=== PATIENT | female | born 1995 | race American Indian/Alaskan Native ===

== ENCOUNTER 2017-07-29 09:00 | Emergency (ER) | payer SELFPAY ==
[2017-07-29] MEDS ORDERED: TORADOL IM ONE (09:17)
[2017-07-29 09:37] LABS: Basophils # (Auto) 0.1 K/mm3 (0.0-0.1); Basophils % (Auto) 0.8 % (0.0-1.8); Eosinophils # (Auto) 0.2 K/mm3 (0.0-0.4); Eosinophils % (Auto) 2.5 % (0.0-4.3); Hematocrit 40.4 % (30.3-42.9); Hemoglobin 13.6 gm/dl (10.1-14.3); Lymphocytes # (Auto) 2.4 K/mm3 (1.2-5.4); Lymphocytes % (Auto) 34.7 % (13.4-35.0); Mean Corpuscular HGB Conc 34 % (30-34); Mean Corpuscular Hemoglobin 29 pg (28-32); Mean Corpuscular Volume 88 fl (79-97); Monocytes # (Auto) 0.5 K/mm3 (0.0-0.8); Monocytes % (Auto) 7.4 % (0.0-7.3); Platelet Count 299 K/mm3 (140-440); Red Blood Count 4.61 M/mm3 (3.65-5.03); Red Cell Distribution Width 13.9 % (13.2-15.2)
[2017-07-29 09:51] LABS: HCG Qualitative,Urine Negative (Negative)
[2017-07-29 09:53] LABS: Bilirubin,Urine NEG (Negative); Blood,Urine SM (Negative); Color,Urine Yellow (Yellow); Mucus,Urine 3+ /HPF; Protein,Urine <15 mg/dL mg/dL (Negative); Urobilinogen,Urine < 2.0 mg/dL (<2.0)
--- NOTE | 2017-07-29 10:46 | Cat Scan Report ---
CT ABDOMEN PELVIS WITHOUT CONTRAST: HISTORY: Severe left flank pain, history of kidney stones. COMPARISON: none. TECHNIQUE: Helical CT in 1.25mm intervals without IV contrast. Sagittal and coronal reconstructions. Comment: Slightly limited imaging secondary to patient motion. FINDINGS: Lung bases: Normal. Liver: Normal. Biliary system: Cholecystectomy changes are suspected. No biliary dilatation. Pancreas: Normal. Spleen: Normal. Kidneys/ureters/bladder: There are 3 calyceal stones in the right kidney. A 5 mm stone is identified at the superior pole. 2 punctate stones are noted near mid pole. No left nephrolithiasis or ureteral stones are identified. No renal cystic disease, obvious mass or hydronephrosis. The bladder is partially empty but unremarkable. Adrenal glands: Normal. Aorta: Normal. Intestines: Unremarkable given no oral contrast was administered. Appendix: Not confidently identified, correlate with surgical history. Pelvic viscera: Normal. Ascites: None. Adenopathy: None. Musculoskeletal: Normal. IMPRESSION: Nonobstructing right nephrolithiasis as described. No left nephrolithiasis or hydronephrosis.
[2017-07-29 11:12] LABS: Alanine Aminotransferase 11 units/L (7-56); Albumin 4.2 g/dL (3.9-5); BUN/Creatinine Ratio 8; Blood Urea Nitrogen 6 mg/dL (7-17); Calcium 9.3 mg/dL (8.4-10.2); Hemolysis Index 12
[2017-07-29] MEDS ORDERED: NACL 0.9% 1000 ML 1,000 ML IV ONE (12:31)
[2017-07-29] MEDS ORDERED: MORPHINE IV ONE (12:44)
[2017-07-29] MEDS ORDERED: ZOFRAN IV ONE (12:44)
[2017-07-29] MEDS ORDERED: MORPHINE ONE (13:02)
--- NOTE | 2017-07-29 13:21 | Emergency Department Report ---
ED Abdominal Pain HPI - General Chief Complaint: Abdominal Pain Stated Complaint: LEFT SIDED FLANK PAIN Time Seen by Provider: 07/29/17 12:08 Source: patient Mode of arrival: Ambulatory Limitations: No Limitations - History of Present Illness Initial Comments: This is a 21-year-old female nontoxic, well nourished in appearance, no acute signs of distress presents to the ED with c/o of acute on chronic flank pain. Patient states last week she developed right-sided flank pain and describes as aching and worsening. Patient also stated she has been diagnosed with chronic kidney stones. Patient denies any bladder or bowel stability. Patient denies any dysuria, hematuria, polyuria, abdominal pain, fever, chills, nausea, vomiting, chest pain, shortness of breathe, numbness, tingling. Patient states allergies or amoxicilli and ciprofloxacin. Patient states PMH includes kidney stones. MD Complaint: flank pain -: week(s) (1) Location: L flank Radiation: none Migration to: no migration Severity: mild Severity scale (0 -10): 8 Quality: aching Consistency: constant Improves With: nothing Worsens With: nothing Associated Symptoms: denies other symptoms. denies: nausea, diarrhea, fever, chills, constipation, dysuria, hematemesis, hematochezia, melena, hematuria, anorexia, syncope - Related Data Previous Rx's Medication Instructions Recorded Last Taken Type Ondansetron [Zofran Odt] 4 mg PO Q8HR PRN #20 tab.rapdis 07/29/17 Unknown Rx traMADol [Ultram] 50 mg PO Q6HR PRN #12 tablet 07/29/17 Unknown Rx Allergies Allergy/AdvReac Type Severity Reaction Status Date / Time amoxicillin Allergy Unknown Verified 07/29/17 13:03 ciprofloxacin [From Cipro] Allergy Nausea Verified 07/29/17 13:03 ED Review of Systems ROS: Stated complaint: LEFT SIDED FLANK PAIN Other details as noted in HPI Constitutional: denies: chills, fever Eyes: denies: eye pain, eye discharge, vision change ENT: denies: ear pain, throat pain Respiratory: denies: cough, shortness of breath, wheezing Cardiovascular: denies: chest pain, palpitations Endocrine: no symptoms reported Gastrointestinal: denies: abdominal pain, nausea, diarrhea Genitourinary: denies: urgency, dysuria, discharge Musculoskeletal: denies: back pain, joint swelling, arthralgia Skin: denies: rash, lesions Neurological: denies: headache, weakness, paresthesias Psychiatric: denies: anxiety, depression Hematological/Lymphatic: denies: easy bleeding, easy bruising ED Past Medical Hx - Past Medical History Previous Medical History?: Yes Hx Kidney Stones: Yes - Surgical History Past Surgical History?: Yes Hx Cholecystectomy: Yes () Hx Breast Surgery: Yes (reduction) Additional Surgical History: Back surgery -2016. Lithotripsy x 7 - Social History Smoking Status: Never Smoker Substance Use Type: Alcohol - Medications Home Medications: Home Medications Medication Instructions Recorded Confirmed Last Taken Type Ondansetron [Zofran Odt] 4 mg PO Q8HR PRN #20 tab.rapdis 07/29/17 Unknown Rx traMADol [Ultram] 50 mg PO Q6HR PRN #12 tablet 07/29/17 Unknown Rx ED Physical Exam - General Limitations: No Limitations General appearance: alert, in no apparent distress - Head Head exam: Present: atraumatic, normocephalic - Eye Eye exam: Present: normal appearance, PERRL, EOMI Pupils: Present: normal accommodation - ENT ENT exam: Present: mucous membranes moist - Neck Neck exam: Present: normal inspection - Respiratory Respiratory exam: Present: normal lung sounds bilaterally. Absent: respiratory distress, wheezes, rhonchi, stridor, chest wall tenderness, accessory muscle use , decreased breath sounds, prolonged expiratory - Cardiovascular Cardiovascular Exam: Present: regular rate, normal rhythm, normal heart sounds. Absent: bradycardia, tachycardia, irregular rhythm, systolic murmur, diastolic murmur, rubs, gallop - GI/Abdominal GI/Abdominal exam: Present: soft, normal bowel sounds. Absent: distended, tenderness, guarding, rebound, rigid, diminished bowel sounds - Extremities Exam Extremities exam: Present: normal inspection, full ROM, normal capillary refill. Absent: tenderness, pedal edema, joint swelling, calf tenderness - Back Exam Back exam: Present: normal inspection, full ROM, other (right flank pain). Absent: tenderness, CVA tenderness (R), CVA tenderness (L), muscle spasm, paraspinal tenderness, vertebral tenderness, rash noted - Neurological Exam Neurological exam: Present: alert, oriented X3, CN II-XII intact, normal gait, reflexes normal - Psychiatric Psychiatric exam: Present: normal affect, normal mood - Skin Skin exam: Present: warm, dry, intact, normal color. Absent: rash ED Course Vital Signs 07/29/17 07/29/17 07/29/17 09:06 13:07 13:21 Temperature 98 F Pulse Rate 70 62 Respiratory 20 18 Rate Blood Pressure 121/70 118/64 O2 Sat by Pulse 100 100 Oximetry 07/29/17 13:29 Temperature Pulse Rate Respiratory 18 Rate Blood Pressure O2 Sat by Pulse 99 Oximetry - Reevaluation(s) Reevaluation #1: 07/29/17 13:23 Patient is speaking in full sentences with no signs of distress noted. ED Medical Decision Making - Lab Data Result diagrams: 07/29/17 09:18 07/29/17 09:18 - Medical Decision Making This is a 21-year-old female who presents with nonobstructing right nephrolithiasis. Patient is animated. Labs within normal limits. UA within normal limits. CT without contrast obtained and dictated the radiologist with a nonobstructing Right kidney stone. No hydronephrosis. Patient is notified of the results with no questionable depression. Patient received 1 L of normal saline, Toradol and morphine with Zofran IV. Patient's pressure increased is currently beside this patient he will check the patient home at discharge due to drowsiness of morphine. Patient was instructed to increase hydration. Patient was also referred and instructed to Follow-up with a primary care doctor in 3-5 days or if symptoms worsen and continue return to emergency room as soon as possible. At time of discharge, the patient does not seem toxic or ill in appearance. No acute signs of distress noted. Patient agrees to discharge treatment plan of care. No further questions noted by the patient. Critical care attestation.: If time is entered above; I have spent that time in minutes in the direct care of this critically ill patient, excluding procedure time. ED Disposition Clinical Impression: Right nephrolithiasis Disposition: DC-01 TO HOME OR SELFCARE Is pt being admited?: No Does the pt Need Aspirin: No Condition: Stable Instructions: Tramadol (By mouth), Kidney Stones (ED) Additional Instructions: Follow-up with a primary care doctor in 3-5 days or if symptoms worsen and continue return to emergency room as soon as possible. Increase hydration as much as possible. Prescriptions: Ondansetron [Zofran Odt] 4 mg PO Q8HR PRN #20 tab.rapdis PRN Reason: Nausea traMADol [Ultram] 50 mg PO Q6HR PRN #12 tablet PRN Reason: Pain Referrals: PRIMARY CARE, [Primary Care Provider] - 3-5 Days TIMI BERTRAND MD [Staff Physician] - 3-5 Days [facility] [Outside] - 3-5 Days [facility] [Outside] - 3-5 Days Forms: Work/School Release Form(ED)
[2017-07-29 13:26] VITALS: BP 118/64
== END 2017-07-29 15:09 | disposition home or self-care (01) ==
LOC: ED 09:00
DX: N20.0 Calculus of kidney (principal); Z90.49 Acquired absence of other specified parts of digestive tract; Z88.6 Allergy status to analgesic agent; Z88.1 Allergy status to other antibiotic agents; Z87.442 Personal history of urinary calculi
CPT/HCPCS: 36415; 74176; 80053; 81001; 81025; 85025; 96361; 96372; 96374; 96375; 99284; J1885; J2270; J2405; J7030

== ENCOUNTER 2018-02-23 09:47 | Emergency (ER) | payer SELFPAY ==
[2018-02-23 09:53] VITALS: BP 108/81
[2018-02-23] MEDS ORDERED: NACL 0.9% 1000 ML 1,000 ML IV ONE ×2 (10:26→13:15)
[2018-02-23] MEDS ORDERED: TORADOL IV ONE (10:26)
[2018-02-23] MEDS ORDERED: ZOFRAN IV ONE ×2 (10:26→13:15)
--- NOTE | 2018-02-23 10:29 | Emergency Department Report ---
ED Abdominal Pain HPI - General Chief Complaint: Abdominal Pain Stated Complaint: STOMACH PAIN Time Seen by Provider: 02/23/18 10:26 Source: patient Mode of arrival: Ambulatory Limitations: No Limitations - History of Present Illness MD Complaint: flank pain -: Sudden Location: R flank Radiation: none Migration to: no migration Severity: severe Quality: stabbing Consistency: constant Improves With: nothing Worsens With: nothing Associated Symptoms: nausea. denies: vomiting, diarrhea, fever, chills, constipation, dysuria, hematemesis, hematochezia, melena, hematuria, anorexia, syncope Treatments Prior to Arrival: NSAIDs (DX AT [facility] AND TOLD SHE'D PASS THEM; INC PAIN THIS AM SO TO ER), prescription analgesics - Related Data Previous Rx's Medication Instructions Recorded Last Taken Type Ondansetron [Zofran Odt] 4 mg PO Q8HR PRN #12 tab.rapdis 02/23/18 Unknown Rx Sulfamethoxazole/Trimethoprim 1 each PO BID #6 tablet 02/23/18 Unknown Rx [Bactrim Ds Tablet] traMADol [Ultram] 50 mg PO Q6HR PRN #12 tablet 02/23/18 Unknown Rx Allergies Allergy/AdvReac Type Severity Reaction Status Date / Time amoxicillin Allergy Unknown Verified 02/23/18 11:25 ciprofloxacin [From Cipro] Allergy Nausea Verified 02/23/18 11:25 ED Review of Systems ROS: Stated complaint: STOMACH PAIN Other details as noted in HPI Comment: All other systems reviewed and negative Constitutional: denies: chills, fever Eyes: denies: eye pain ENT: denies: ear pain, throat pain Respiratory: denies: cough, orthopnea Cardiovascular: denies: palpitations Endocrine: denies: flushing, intolerance to heat Gastrointestinal: abdominal pain, nausea. denies: vomiting, diarrhea, constipation, hematemesis, melena Genitourinary: denies: urgency, dysuria, frequency, hematuria, discharge Musculoskeletal: denies: back pain Skin: denies: lesions Neurological: denies: headache Psychiatric: denies: anxiety Hematological/Lymphatic: denies: easy bleeding ED Past Medical Hx - Past Medical History Hx Kidney Stones: Yes - Surgical History Hx Cholecystectomy: Yes () Hx Breast Surgery: Yes (reduction) Additional Surgical History: Back surgery -2016. Lithotripsy x 7 - Family History Family history: no significant - Social History Smoking Status: Never Smoker Substance Use Type: None - Medications Home Medications: Home Medications Medication Instructions Recorded Confirmed Last Taken Type Ondansetron [Zofran Odt] 4 mg PO Q8HR PRN #12 tab.rapdis 02/23/18 Unknown Rx Sulfamethoxazole/Trimethoprim 1 each PO BID #6 tablet 02/23/18 Unknown Rx [Bactrim Ds Tablet] traMADol [Ultram] 50 mg PO Q6HR PRN #12 tablet 02/23/18 Unknown Rx ED Physical Exam - General Limitations: No Limitations General appearance: alert - Head Head exam: Present: atraumatic - Eye Eye exam: Present: normal appearance - ENT ENT exam: Present: mucous membranes moist - Neck Neck exam: Present: normal inspection - Respiratory Respiratory exam: Present: normal lung sounds bilaterally - Cardiovascular Cardiovascular Exam: Present: regular rate - GI/Abdominal GI/Abdominal exam: Present: soft, normal bowel sounds - Rectal Rectal exam: Present: deferred - Extremities Exam Extremities exam: Present: normal inspection - Back Exam Back exam: Present: normal inspection, CVA tenderness (R) - Neurological Exam Neurological exam: Present: alert, oriented X3, normal gait, reflexes normal - Psychiatric Psychiatric exam: Present: normal affect, normal mood - Skin Skin exam: Present: warm, dry ED Course Vital Signs 02/23/18 02/23/18 02/23/18 09:51 10:36 11:15 Temperature 98.1 F Pulse Rate 91 H Respiratory 16 18 18 Rate Blood Pressure 108/81 O2 Sat by Pulse 100 Oximetry 02/23/18 13:49 Temperature Pulse Rate Respiratory 18 Rate Blood Pressure O2 Sat by Pulse Oximetry - Reevaluation(s) Reevaluation #1: 02/23/18 0930 PT TO ER TODAY W R FLANK PAIN SHE IS AMBULATORY AND IN NAD SHE STATES SHE WAS SEEN AT [facility] WEEKS AGO AND SHE HAD K STONES (HX IN PAST TOO) THEY SENT HER HOME W RX TELLING HER STONE SMALL AND SHE WOULD PASS TODAY PAIN INC SHE REPORTS NAUSEA AND DIAPHORESIS LABS AND CT P Reevaluation #2: 02/23/18 1200 PT HAS BEEN MEDICATED FOR PAIN, NAUSEA AND ANBX CT POS STONE IVF 2 L NS VOIDING AND AMBULATORY IN ER TAKING PO WATER 02/23/18 1300 WILL DC HOME WITH URO FOLLOW UP Reevaluation #3: 02/23/18 14:24 ON DC PT UPSET SHE IS NOT BEING ADMITTED I AGAIN EXPLAINED TO PT HER OUTPT MANAGEMENT OF STONES. SHE STATES IN [place] SHE WOULD BE ADMITTED. EDUCATED PT ON DC MEDS AND FOLLOW UP VSS. NAD NO N/V ED Medical Decision Making - Lab Data Result diagrams: 02/23/18 10:33 02/23/18 10:33 - Radiology Data Radiology results: report reviewed - Medical Decision Making STONES ON CT CR N HYDRO DISCUSSED WITH DR YUDI CALLOWAY WITH FOLLOW UP - Differential Diagnosis KNOWN K STONES RO INFECTED STONE AND/OR OBSTRUCTING STONE Critical care attestation.: If time is entered above; I have spent that time in minutes in the direct care of this critically ill patient, excluding procedure time. ED Disposition Clinical Impression: Kidney stone, UTI (urinary tract infection), Hydronephrosis Disposition: TO HOME OR SELFCARE Is pt being admited?: No Does the pt Need Aspirin: No Condition: Stable Instructions: Kidney Stones (ED) Additional Instructions: CALL TODAY AND MAKE APPOINTMENT FOR UROLOGY THE STONE IS LARGE ENOUGH THAT IT MAY NEED TREATED TO PASS HYDRATE WELL WITH WATER MEDS ORDERED TODAY DIET TOLERATED ACTIVITY TOLERATED Prescriptions: Ondansetron [Zofran Odt] 4 mg PO Q8HR PRN #12 tab.rapdis PRN Reason: Nausea Sulfamethoxazole/Trimethoprim [Bactrim Ds Tablet] 1 each PO BID #6 tablet traMADol [Ultram] 50 mg PO Q6HR PRN #12 tablet PRN Reason: Pain Referrals: YODIT ALVARADO MD [Staff Physician] - 3-5 Days Time of Disposition: 13:22
[2018-02-23 10:45] LABS: Hematocrit 38.6 % (30.3-42.9); Hemoglobin 12.9 gm/dl (10.1-14.3); Mean Corpuscular HGB Conc 33 % (30-34); Mean Corpuscular Hemoglobin 30 pg (28-32); Mean Corpuscular Volume 90 fl (79-97); Platelet Count 286 K/mm3 (140-440); Red Cell Distribution Width 14.4 % (13.2-15.2)
[2018-02-23 11:02] LABS: BUN/Creatinine Ratio 14; Blood Urea Nitrogen 11 mg/dL (7-17); Hemolysis Index 31
[2018-02-23 11:10] LABS: Bacteria,Urine 4+ /HPF (Negative); Bilirubin,Urine NEG (Negative); Blood,Urine SM (Negative); Color,Urine Amber (Yellow); Mucus,Urine 3+ /HPF
[2018-02-23 11:11] LABS: WBC,Urine > 182.0 /HPF (0.0-6.0)
[2018-02-23 11:12] LABS: HCG Qualitative,Urine Negative (Negative)
[2018-02-23] MEDS ORDERED: ROCEPHIN/NS 1 GM/50 ML 1 GM/50 ML BAG IV ONE (11:13)
--- NOTE | 2018-02-23 12:45 | Cat Scan Report ---
CT ABDOMEN PELVIS WITHOUT CONTRAST: HISTORY: Right flank pain. COMPARISON: 07/29/17. TECHNIQUE: Helical CT in 1.25mm intervals without IV contrast. Sagittal and coronal reconstructions. FINDINGS: Lung bases: Normal. Liver: Normal. Biliary system: Cholecystectomy changes. No biliary dilatation. Pancreas: Normal. Spleen: Normal. Kidneys/ureters/bladder: There is moderate right hydronephrosis. A 7 x 5 x 11 mm calculus is identified in the proximal right ureter. A 3 mm calyceal stone is noted in the mid right kidney. No left nephrolithiasis. The bladder is partially empty but unremarkable. Adrenal glands: Normal. Aorta: Normal. Intestines: Normal. Appendix: Normal. Pelvic viscera: The 2 cm hypodensity is identified in the left adnexa which probably represents a left ovarian cyst. The uterus and right adnexa are unremarkable. Ascites: None. Adenopathy: None. Musculoskeletal: Normal. IMPRESSION: Proximal right ureteral stone as described. Moderate right hydronephrosis. 2 cm left ovarian cyst.
[2018-02-23] MEDS ORDERED: DILAUDID IV ONE (13:15)
[2018-02-23] MEDS ORDERED: ZOFRAN ODT ONE (14:49)
== END 2018-02-23 14:17 | disposition home or self-care (01) ==
LOC: ED 09:47
DX: N13.2 Hydronephrosis with renal and ureteral calculous obstruction (principal); N39.0 Urinary tract infection, site not specified; Z90.49 Acquired absence of other specified parts of digestive tract; Z88.1 Allergy status to other antibiotic agents
CPT/HCPCS: 36415; 74176; 80048; 81001; 81025; 85027; 96365; 96375; 96376; 99284; J0696; J1170; J1885; J2405; J7030; 96361; Q0162

== ENCOUNTER 2019-01-04 11:07 | Emergency (ER) | payer SELFPAY ==
--- NOTE | 2019-01-04 11:19 | Event Note ---
ED Screening Note Date of service: 01/04/19 Time: 11:18 ED Screening Note: 23 y/o female comes in for vaginal irritation and vaginal discharge for 5 days. This initial assessment/diagnostic orders/clinical plan/treatment(s) is/are subject to change based on patients health status, clinical progression and re- assessment by fellow clinical providers in the ED. Further treatment and workup at subsequent clinical providers discretion. Patient/guardian urged not to elope from the ED as their condition may be serious if not clinically assessed and managed. Initial orders include:
[2019-01-04 11:20] VITALS: BP 116/74
[2019-01-04 12:41] LABS: Bacteria,Urine 1+ /HPF (Negative); Bilirubin,Urine NEG (Negative); Blood,Urine NEG (Negative); Calcium Oxalate Crystals,Urine 2+; Color,Urine Yellow (Yellow); Mucus,Urine 3+ /HPF; Protein,Urine <15 mg/dL mg/dL (Negative); Urobilinogen,Urine < 2.0 mg/dL (<2.0)
--- NOTE | 2019-01-04 13:28 | Emergency Department Report ---
ED Female HPI - General Chief complaint: Urogenital-Female Stated complaint: VAGINAL RASH Time Seen by Provider: 01/04/19 11:17 Source: patient Mode of arrival: Ambulatory Limitations: No Limitations - History of Present Illness Initial comments: Fatou is a healthy 23-year-old female who presents with vaginal irritation vaginal discharge 5 days. White thick discharge. No fever. No abdominal pain. Gradual onset. She felt irritation in her buttock region. Concern for a rash. She did not see any lesions. She does shave her pubic region. MD Complaint: vaginal discharge -: Gradual, days(s) (5) Location: labia Severity: mild Quality: burning Consistency: constant Improves with: none Worsens with: none - Related Data Previous Rx's Medication Instructions Recorded Last Taken Type Ondansetron [Zofran Odt] 4 mg PO Q8HR PRN #12 tab.rapdis 02/23/18 Unknown Rx Sulfamethoxazole/Trimethoprim 1 each PO BID #6 tablet 02/23/18 Unknown Rx [Bactrim Ds Tablet] traMADol [Ultram] 50 mg PO Q6HR PRN #12 tablet 02/23/18 Unknown Rx Fluconazole [Diflucan TAB] 150 mg PO ONCE #1 tablet 01/04/19 Unknown Rx Miconazole/Cleanser 17 On Wipe 1 each VG QHS 7 Days #1 kit 01/04/19 Unknown Rx [Monistat 7 Combination Pack] metroNIDAZOLE [Flagyl TAB] 500 mg PO Q12HR 7 Days #14 tab 01/04/19 Unknown Rx Allergies Allergy/AdvReac Type Severity Reaction Status Date / Time amoxicillin Allergy Unknown Verified 02/23/18 11:25 ciprofloxacin [From Cipro] Allergy Nausea Verified 02/23/18 11:25 ED Review of Systems ROS: Stated complaint: VAGINAL RASH Other details as noted in HPI Constitutional: denies: fever, malaise Gastrointestinal: denies: abdominal pain, nausea, vomiting Genitourinary: discharge. denies: dysuria ED Past Medical Hx - Past Medical History Hx Kidney Stones: Yes - Surgical History Hx Cholecystectomy: Yes (-2016) Hx Breast Surgery: Yes (reduction) Additional Surgical History: Back surgery -2016. Lithotripsy x 7 - Social History Smoking Status: Never Smoker Substance Use Type: Alcohol - Medications Home Medications: Home Medications Medication Instructions Recorded Confirmed Last Taken Type Ondansetron [Zofran Odt] 4 mg PO Q8HR PRN #12 tab.rapdis 02/23/18 Unknown Rx Sulfamethoxazole/Trimethoprim 1 each PO BID #6 tablet 02/23/18 Unknown Rx [Bactrim Ds Tablet] traMADol [Ultram] 50 mg PO Q6HR PRN #12 tablet 02/23/18 Unknown Rx Fluconazole [Diflucan TAB] 150 mg PO ONCE #1 tablet 01/04/19 Unknown Rx Miconazole/Cleanser 17 On Wipe 1 each VG QHS 7 Days #1 kit 01/04/19 Unknown Rx [Monistat 7 Combination Pack] metroNIDAZOLE [Flagyl TAB] 500 mg PO Q12HR 7 Days #14 tab 01/04/19 Unknown Rx ED Physical Exam - General Limitations: No Limitations General appearance: alert, in no apparent distress - Head Head exam: Present: atraumatic, normocephalic - Eye Eye exam: Absent: scleral icterus, conjunctival injection - ENT ENT exam: Present: mucous membranes moist - Neck Neck exam: Present: normal inspection, full ROM - GI/Abdominal GI/Abdominal exam: Present: soft. Absent: distended, tenderness, guarding, rebound - External exam: Present: normal external exam. Absent: erythema, swelling, lesions, lacerations, ecchymosis, bleeding - Neurological Exam Neurological exam: Present: alert, oriented X3 - Psychiatric Psychiatric exam: Present: normal affect, normal mood - Skin Skin exam: Present: warm, dry, intact, normal color ED Course Vital Signs 01/04/19 11:18 Temperature 98.5 F Pulse Rate 72 Respiratory 18 Rate Blood Pressure 116/74 O2 Sat by Pulse 100 Oximetry ED Medical Decision Making - Medical Decision Making Vaginitis without indication of pelvic inflammatory disease, prescribed fluconazole Monistat and metronidazole Referred to shagger Critical care attestation.: If time is entered above; I have spent that time in minutes in the direct care of this critically ill patient, excluding procedure time. ED Disposition Clinical Impression: Vaginitis Disposition: - TO HOME OR SELFCARE Is pt being admited?: No Does the pt Need Aspirin: No Condition: Stable Instructions: Vaginitis (ED) Prescriptions: Miconazole/Cleanser 17 On Wipe [Monistat 7 Combination Pack] 1 each VG QHS 7 Days #1 kit Fluconazole [Diflucan TAB] 150 mg PO ONCE #1 tablet metroNIDAZOLE [Flagyl TAB] 500 mg PO Q12HR 7 Days #14 tab Referrals: ANKUSH WARD MD [Primary Care Provider] - 3-5 Days Forms: Work/School Release Form(ED)
== END 2019-01-04 13:34 | disposition home or self-care (01) ==
LOC: ED 11:07
DX: N76.0 Acute vaginitis (principal); Z87.442 Personal history of urinary calculi; Z90.49 Acquired absence of other specified parts of digestive tract; Z98.890 Other specified postprocedural states; Z79.899 Other long term (current) drug therapy; Z88.1 Allergy status to other antibiotic agents
CPT/HCPCS: 81001

== ENCOUNTER 2019-03-02 10:43 | Emergency (ER) | payer OTHER ==
[2019-03-02] MEDS ORDERED: NACL 0.9% 1000 ML 1,000 ML IV ONE (12:12)
[2019-03-02] MEDS ORDERED: ZOFRAN IV ONE (12:12)
[2019-03-02] MEDS ORDERED: TORADOL IV ONE (12:12)
--- NOTE | 2019-03-02 12:13 | Emergency Department Report ---
ED Abdominal Pain HPI - General Chief Complaint: Abdominal Pain Stated Complaint: RT SIDE PAIN/N/HARD TO URINE Time Seen by Provider: 03/02/19 12:12 Source: patient Mode of arrival: Ambulatory Limitations: No Limitations - History of Present Illness Initial Comments: CT 10-8 PROX STONE; PT DID NOT FOLLOW UP NO INSURANCE 23 YO COMES TO ER TODAY WITH R FLANK PAIN AND N/V. SHE STATES SHE HAS NO MD SO SHE CAME TO ER. NO VOMITING ON ADMIT TO ER. COMES VIA EMS WITH STABLE VS. PMH NUMEROUS K STONES PSH BREAST REDUCTION BACK SURGERY K STONES PT STATES NOT CONCERNED ABOUT STI. NOT CONCERNED FOR PREG LMP 9-20 SHE WAS ALSO SEEN ABOUT 1 WEEK AGO FOR VAG DC. PER RN SHE STATES ON INSERTION OF SHAH SHE HAD A LOT OF DISCHARGE. NO FEVER NON TOXIC NON ILL APPEARING ON EXAM IN ER NO FEVER SHE ENDORSES CHILLS AT HOME MD Complaint: abdominal pain -: Sudden, days(s) Location: R flank Radiation: none Migration to: RLQ Severity: severe Severity scale (0 -10): 10 Quality: stabbing, sharp Consistency: intermittent Improves With: nothing Worsens With: nothing Associated Symptoms: nausea, vomiting Treatments Prior to Arrival: NSAIDs - Related Data Previous Rx's Medication Instructions Recorded Last Taken Type Fluconazole [Diflucan TAB] 100 mg PO QDAY #1 tablet 03/02/19 Unknown Rx Ibuprofen [Motrin] 800 mg PO Q8HR PRN #30 tablet 03/02/19 Unknown Rx Ondansetron [Zofran Odt] 4 mg PO Q8HR PRN #10 tab.rapdis 03/02/19 Unknown Rx Sulfamethoxazole/Trimethoprim 1 each PO BID #10 tablet 03/02/19 Unknown Rx [Bactrim DS TAB] metroNIDAZOLE [Flagyl] 500 mg PO Q12HR #20 tab 03/02/19 Unknown Rx Allergies Allergy/AdvReac Type Severity Reaction Status Date / Time amoxicillin Allergy Unknown Verified 03/02/19 10:50 ciprofloxacin [From Cipro] Allergy Nausea Verified 03/02/19 10:50 ED Review of Systems ROS: Stated complaint: RT SIDE PAIN/N/HARD TO URINE Other details as noted in HPI Comment: All other systems reviewed and negative ED Past Medical Hx - Past Medical History Previous Medical History?: Yes Hx Kidney Stones: Yes - Surgical History Past Surgical History?: Yes Hx Cholecystectomy: Yes () Hx Breast Surgery: Yes (reduction) Additional Surgical History: Back surgery . Lithotripsy x 7, breast reduction - Family History Family history: no significant - Social History Smoking Status: Never Smoker Substance Use Type: Alcohol - Medications Home Medications: Home Medications Medication Instructions Recorded Confirmed Last Taken Type Fluconazole [Diflucan TAB] 100 mg PO QDAY #1 tablet 03/02/19 Unknown Rx Ibuprofen [Motrin] 800 mg PO Q8HR PRN #30 tablet 03/02/19 Unknown Rx Ondansetron [Zofran Odt] 4 mg PO Q8HR PRN #10 tab.rapdis 03/02/19 Unknown Rx Sulfamethoxazole/Trimethoprim 1 each PO BID #10 tablet 03/02/19 Unknown Rx [Bactrim DS TAB] metroNIDAZOLE [Flagyl] 500 mg PO Q12HR #20 tab 03/02/19 Unknown Rx ED Physical Exam - General Limitations: No Limitations General appearance: alert - Head Head exam: Present: normocephalic - Eye Eye exam: Present: normal appearance, PERRL - ENT ENT exam: Present: mucous membranes moist - Neck Neck exam: Present: normal inspection - Respiratory Respiratory exam: Present: normal lung sounds bilaterally - Cardiovascular Cardiovascular Exam: Present: regular rate, tachycardia (106) - GI/Abdominal GI/Abdominal exam: Present: soft, normal bowel sounds - Rectal Rectal exam: Present: deferred - Extremities Exam Extremities exam: Present: normal inspection, full ROM - Back Exam Back exam: Present: normal inspection, full ROM. Absent: tenderness, CVA tenderness (R), CVA tenderness (L) - Neurological Exam Neurological exam: Present: alert, oriented X3, CN II-XII intact, normal gait - Psychiatric Psychiatric exam: Present: normal affect, normal mood ED Course Vital Signs 03/02/19 03/02/19 03/02/19 10:50 13:20 16:07 Temperature 98.7 F Pulse Rate 106 H 75 Respiratory 18 16 18 Rate Blood Pressure 118/82 126/74 [Right] O2 Sat by Pulse 99 100 Oximetry - Reevaluation(s) Reevaluation #1: 03/02/19 16:00 HR 88 ON REEXAM ED Medical Decision Making - Lab Data Result diagrams: 03/02/19 13:08 03/02/19 13:08 - Radiology Data Radiology results: report reviewed, image reviewed - Medical Decision Making Labs 03/02/19 03/02/19 03/02/19 13:08 13:08 Unknown WBC 13.2 H RBC 4.40 Hgb 13.1 Hct 39.2 MCV 89 MCH 30 MCHC 33 RDW 13.1 L Plt Count 257 Sodium 136 L Potassium 4.2 Chloride 100.2 Carbon Dioxide 20 L Anion Gap 20 BUN 14 Creatinine 1.0 Estimated GFR > 60 BUN/Creatinine Ratio 14 Glucose 81 Calcium 9.5 Total Bilirubin 0.80 AST 24 ALT 15 Alkaline Phosphatase 73 Total Protein 8.4 H Albumin 4.4 Albumin/Globulin Ratio 1.1 Urine Color Yellow Urine Turbidity Cloudy Urine pH 5.0 Ur Specific [place] 1.019 Urine Protein 100 mg/dl Urine Glucose (UA) Neg Urine Ketones 20 Urine Blood Lg Urine Nitrite Pos Ur Reducing Substances Not Reportable Urine Bilirubin Neg Urine Ictotest Not Reportable Urine Urobilinogen < 2.0 Ur Leukocyte Esterase Mod Urine WBC (Auto) 173.0 H Urine RBC (Auto) 169.0 U Epithel Cells (Auto) 6.0 Urine Bacteria (Auto) 3+ Urine WBC Clumps 3+ Urine Mucus 3+ Urine HCG, Qual Negative Vital Signs 03/02/19 03/02/19 10:50 13:20 Temperature 98.7 F Pulse Rate 106 H Respiratory 18 16 Rate Blood Pressure 118/82 [Right] O2 Sat by Pulse 99 Oximetry UA NOTED NS/ROCEPHIN IV LABS NOTED WBC NORMAL NO FEVER CT NOTED INTERVAL CHANGE; LIKELY SHE PASSED STONE LAST WEEK SAW OBGYN AND HAS NO STI PER OBGYN RECENT TX FOR YEAST INFECTION DISCUSSED IMPORTANCE OF FOLLOW UP WITH URO FOR PT. SHE VERBALIZES UNDERSTANDING. VSS NO FEVER. AMBULATORY. TAKING PO ON DC. - Differential Diagnosis RO UTI/STI/K STONE/PYLO Critical care attestation.: If time is entered above; I have spent that time in minutes in the direct care of this critically ill patient, excluding procedure time. ED Disposition Clinical Impression: UTI (urinary tract infection), BV (bacterial vaginosis), Flank pain with history of urolithiasis Disposition: DC-01 TO HOME OR SELFCARE Is pt being admited?: No Does the pt Need Aspirin: No Condition: Stable Instructions: Bacterial Vaginosis (ED), Abdominal Pain (ED) Prescriptions: Sulfamethoxazole/Trimethoprim [Bactrim DS TAB] 1 each PO BID #10 tablet Fluconazole [Diflucan TAB] 100 mg PO QDAY #1 tablet metroNIDAZOLE [Flagyl] 500 mg PO Q12HR #20 tab Ibuprofen [Motrin] 800 mg PO Q8HR PRN #30 tablet PRN Reason: Pain, Moderate (4-6) Ondansetron [Zofran Odt] 4 mg PO Q8HR PRN #10 tab.rapdis PRN Reason: Vomiting Referrals: [facility] MD NO [Primary Care Provider] - 3-5 Days [facility] [Outside] - 3-5 Days GRACIELA CONLEY MD [Staff Physician] - 3-5 Days KANWAL JOSEPH MD [Staff Physician] - 3-5 Days Forms: STI Treatment and Prevention, Work/School Release Form(ED) Time of Disposition: 15:20
[2019-03-02 12:45] LABS: HCG Qualitative,Urine Negative (Negative)
[2019-03-02 12:47] LABS: Bacteria,Urine 3+ /HPF (Negative); Bilirubin,Urine NEG (Negative); Blood,Urine LG (Negative); Color,Urine Yellow (Yellow); Mucus,Urine 3+ /HPF; Urobilinogen,Urine < 2.0 mg/dL (<2.0)
[2019-03-02 13:12] LABS: Hematocrit 39.2 % (30.3-42.9); Hemoglobin 13.1 gm/dl (10.1-14.3); Mean Corpuscular HGB Conc 33 % (30-34); Mean Corpuscular Volume 89 fl (79-97); Platelet Count 257 K/mm3 (140-440); Red Cell Distribution Width 13.1 % (13.2-15.2)
[2019-03-02 14:01] LABS: Alanine Aminotransferase 15 units/L (7-56); Albumin 4.4 g/dL (3.9-5); BUN/Creatinine Ratio 14; Blood Urea Nitrogen 14 mg/dL (7-17); Calcium 9.5 mg/dL (8.4-10.2); Hemolysis Index 28
[2019-03-02] MEDS ORDERED: ROCEPHIN/NS 1 GM/50 ML 1 GM/50 ML BAG IV ONE (14:06)
--- NOTE | 2019-03-02 14:44 | Cat Scan Report ---
CT ABDOMEN AND PELVIS WITHOUT CONTRAST HISTORY: Right flank pain COMPARISON: 02/23/2018 TECHNIQUE: Axial CT images were obtained through the abdomen and pelvis without IV contrast. Sagittal and coronal reformatted images. All CT scans at this location are performed using CT dose reduction for ALARA by means of automated exposure control. FINDINGS: CT ABDOMEN: Lung Bases: Clear. Liver: No significant abnormality. Biliary: Cholecystectomy. No biliary dilatation. Spleen: No significant abnormality. Unenlarged. Pancreas: No significant abnormality. Adrenals: No significant abnormality. Kidneys: The kidneys are normal size, contour and position. No focal renal lesion. There is mild righ t perinephric and periureteral stranding. Mild right hydroureter is also identified. No nephrolithias is or ureteral stones are identified. Bilateral pelvic phleboliths are noted. Lymphatics: No lymphadenopathy. Vasculature: No significant abnormality. Bowel/Peritoneum: No significant abnormality. No free air. No free fluid. The appendix is not confide ntly identified. No inflammatory changes in the right lower quadrant. CT PELVIS: : The uterus and adnexa are unremarkable. The bladder is decompressed with a Ferguson catheter. Osseous Structures: No significant abnormality. Additional Findings: None IMPRESSION: Mild right perinephric and periureteral stranding is identified. Mild right hydroureter. No obvious s tone is identified in the right ureter. This could represent a nonvisualized stone or recently passed stone. Signer Name: Jaciel Sue Jr, MD Signed: 03/02/2019 2:40 PM Workstation Name: [id number]
[2019-03-02] MEDS ORDERED: TYLENOL PO ONE (15:51)
[2019-03-02] MEDS ORDERED: DIFLUCAN PO ONE (16:00)
[2019-03-02 16:08] VITALS: BP 126/74
== END 2019-03-02 16:44 | disposition home or self-care (01) ==
LOC: ED 10:43
DX: N39.0 Urinary tract infection, site not specified (principal); N76.0 Acute vaginitis; R11.2 Nausea with vomiting, unspecified; Z87.442 Personal history of urinary calculi; Z90.49 Acquired absence of other specified parts of digestive tract; Z98.890 Other specified postprocedural states; Z79.899 Other long term (current) drug therapy; Z88.1 Allergy status to other antibiotic agents
CPT/HCPCS: 36415; 74176; 80053; 81001; 81025; 85027; 87210; 87591; 96361; 96365; 96375; 99284; J0696; J1885; J2405; J7030